=== PATIENT | female | born 1975 | race Caucasian/White ===

== ENCOUNTER 2023-01-20 12:46 | Outpatient (CLI) | payer OTHER, SELFPAY ==
--- NOTE | ~2023-01-20 | CT_ITS ---
EXAMINATION: CT abdomen pelvis w con DATE: 01/20/2023 13:14 INDICATION: Unspecified abdominal pain TECHNIQUE: Computed tomography (CT) of the abdomen and pelvis was performed with 100 CC Omnipaque 350 intravenous contrast. Automated exposure control and iterative reconstruction technique were employe d. Exam dose: 827.16 mGy-cm total exam DLP. COMPARISON: 05/18/2019 CT abdomen pelvis FINDINGS: 3 mm peripheral middle lobe pulmonary nodule, not likely of clinical significance if there are no risk factors for lung cancer. The lung bases are clear of infiltrate or consolidation. Normal heart size. No pericardial or pleural effusion. Status post cholecystectomy. No bile duct or pancreatic duct dilatation. No hepatic, pancreatic, sple beryl or adrenal space-occupying mass lesion. 3.5 mm left renal cyst. The kidneys are otherwise unremarkable. No urinary tract calculus or hydroure teronephrosis. The urinary bladder is unremarkable. Status post hysterectomy. 2.3 cm left ovarian cys t. Mild abdominal aortic atherosclerotic calcification. No abdominal aortic aneurysm. No intraperitoneal or retroperitoneal or pelvic mass lesion or adenopathy or ascites is detected. Normal appendix. No bowel obstruction, bowel wall thickening or pneumoperitoneum. Included skeletal structures are unremarkable. IMPRESSION: Status post cholecystectomy Status post hysterectomy 3.5 mm left renal cyst 2.3 cm left ovarian cyst Reviewed, dictated and finalized at [facility]. Reviewed, dictated and finalized at [facility].
[2023-01-20 13:06] LABS: Estimated Glomerular Filt Rate > 60
== END 2023-01-20 12:47 ==
PROVIDERS: PCP Physician Assistant Medical; Visit Provider Physician Assistant Medical
DX: R10.9 Unspecified abdominal pain (principal); R31.9 Hematuria, unspecified; N28.1 Cyst of kidney, acquired; N83.202 Unspecified ovarian cyst, left side; Z90.49 Acquired absence of other specified parts of digestive tract
CPT/HCPCS: 74177; Q9967

== ENCOUNTER → 2023-03-19 10:56 | Outpatient (CLI) | payer OTHER, SELFPAY ==
--- NOTE | ~2023-03-19 | US_ITS ---
EXAMINATION: US pelvic complete DATE: 03/19/2023 11:38 INDICATION: Follow-up ovarian cyst Comparison:No prior studies for comparison. TECHNIQUE: Multiple transabdominal and endovaginal sonographic images of the pelvis performed. FINDINGS: The uterus is surgically absent. The right ovary measures 2.9 x 2.1 x 3.6 cm and the left o vary measures 4 x 2 x 2.7 cm. There are small follicles in each ovary. Normal doppler signal in both ovaries. There is no free fluid in the pelvis. There are no abnormal masses seen on either side. IMPRESSION: 1. Unremarkable pelvic ultrasound post hysterectomy. Reviewed, dictated and finalized at [facility].
== END ==
PROVIDERS: PCP Physician Assistant Medical; Visit Provider Obstetrics & Gynecology Gynecology
DX: N83.202 Unspecified ovarian cyst, left side (principal)
CPT/HCPCS: 76856

== ENCOUNTER 2023-06-18 00:16 | Day surgery (SDC) | payer OTHER, SELFPAY ==
[2023-04-27 14:26] VITALS: BMI 33.8
--- NOTE | 2023-06-03 10:56 | PC.NURSE ---
Pt was rescheduled from May to 06/18/23. States no changes in health history or medications since last PAT call. Aware of new date and times. Will e-mail prep instructions per pt request. No further questions. Verbalizes understanding.
--- NOTE | 2023-06-16 12:10 | SUR.PREOP ---
Patient called regarding upcoming procedure. Reviewed preop instructions, appointment times, and procedure prep.
[2023-06-18 08:18] VITALS: BP 127/74; PULSE 60; RESP 18; TEMP 36.4; O2SAT 98; BMI 34.0
[2023-06-18] MEDS: LACTATED RINGERS 1,000 ML 150 ML IV CONT (08:38)
--- NOTE | 2023-06-18 08:49 | WPDANESEPPF ---
Anes - Initial Pre Proc Eval Procedure: Operation Date: 06/18/23 09:30 Proposed Procedures p Screening Colonoscopy - Lino Vasquez MD Date/Time: 06/18/23 08:49 Surgeon: Lino Vasquez MD Pre Op Diagnosis: neoplasm screening, screening for malignant neopla Patient Data Age: 47 Gender: F Height: 1.57 m Weight: 84.4 kg Last Vital Signs Temp 36.4 C L 06/18/23 08:18 Pulse 60 06/18/23 08:18 Resp 18 06/18/23 08:18 BP 127/74 06/18/23 08:18 Pulse Ox 98 06/18/23 08:18 O2 Del Method Room Air 06/18/23 08:18 Allergies Allergy/AdvReac Type Severity Reaction Status Date / Time iohexol Allergy Rash Verified 06/18/23 08:27 [From contrast - CT, X-RAY] diazepam [From Valium] AdvReac Irritable Verified 06/18/23 08:27 duloxetine [From Cymbalta] AdvReac Rash Verified 06/18/23 08:27 Home Medications Medication Instructions Recorded Confirmed Type lorazepam 0.5 mg tablet 0.5 mg PO BID PRN anxiety #60 tabs 03/16/23 06/18/23 Rx dextroamphetamine-amphetamine ER 20 mg PO DAILY #60 caps 04/02/23 06/18/23 Rx 10 mg 24hr capsule,extend release (Adderall XR) losartan 50 mg-hydrochlorothiazide 1 tablet PO DAILY 04/27/23 06/18/23 History 12.5 mg tablet azithromycin 250 mg tablet See Rx Instructions PO .COMPLEX #6 05/17/23 06/18/23 Rx tabs bupropion HCl 300 mg 24 hr tablet, See Rx Instructions .Route 05/17/23 06/18/23 Rx extended release .COMPLEX #90 tabs prednisone 20 mg tablet 20 mg PO DAILY #5 tabs 05/17/23 06/18/23 Rx Patient hx anesthesia problems: none Family hx anesthesia problems: none Results Review: All pre-operative results and documents have been reviewed as part of the pre-operative evaluation. [facility] Past Medical History Medical History Abnormal mammogram ADD (attention deficit disorder) Anxiety Depression Gallbladder & bile duct stone, acute cholecystitis and obstruction HTN (hypertension) Surgical History Surgical History History of cholecystectomy History of hysterectomy still has ovaries Family History Family History Mother Family history of gynecological problem Sibling Family history of gynecological problem Grandparent Carcinoma of colon Malignant neoplasm of prostate Other Family history of lupus erythematosus Social History Social History Smoking packs per day: 0.25 Smoking cigarettes per day: 5.0 Years smoked: 5 Smoking pack-years: 1.25 Smoking status: Former smoker Tobacco type: cigarettes Smoking end date: 07/05/09 Alcohol intake: current Alcohol use details: 2 drinks monthly Substance use: never Substance use type: does not use Lack of Transportation: No Lack of Food: Never True Current Housing: I Have Housing Concerned About Future Housing: No Difficulty Paying Gas/Electric Bills: No Difficulty Paying for Meds: No Currently Unemployed: No Education: High School Diploma/GED Difficulty w/ Childcare or Family Care: No Living arrangements: with family Occupation/Education: occupation Gender identity (if verbalized by the patient): Female Sexual Orientation (if Verbalized by the Patient): Straight or Heterosexual Spiritual care concerns: No Anes - Eval Final PreProcedure Day of Procedure 06/18/23 08:49 Patient weight: obese Heart: regular rate and rhythm Lungs: clear to auscultation Airway: Mallampati scale class III and special considerations poor opening Neurological: alert and oriented Last oral intake: >/= 8 hours ASA classification: III Emergent: no Anesthetic plan: proceed Anesthesia type and monitoring: general GIVS and standard monitoring Results Review: All pre-operative results and documents have been reviewed as part of
--- NOTE | 2023-06-18 09:06 | PM.HPGS ---
History of Present Illness History of Present Illness Consent: Risks, benefits, and alternatives have been discussed and questions answered. Patient agrees to proceed with procedure. Chief complaint: neoplasm screening, screening for malignant neopla Narrative: Carline Gracia is a 47 year old female here for screening colonoscopy, had one about 20 years ago when was having GI issues Review of Systems Constitutional: Constitutional: Denies headache(s) and Denies weakness Eyes: Eyes: Denies blurry vision ENT: Reports Normal hearing present, Denies headache(s) and Denies neck pain Cardiovascular: Cardiovascular: Denies chest pain and Denies dyspnea Respiratory: Respiratory: Denies dyspnea Gastrointestinal: Gastrointestinal: Reports no additional gastrointestinal complaints Genitourinary: Genitourinary: Denies dysuria Musculoskeletal: Musculoskeletal: Denies neck pain Integumentary/Breasts: Skin/Breast: Denies dry skin Neurologic: Reports Normal hearing present, Denies headache(s) and Denies weakness Psychiatric: Psychiatric: Denies anxiety Endocrine: Endocrine: Denies change in body appearance Hematologic/Lymphatic: Hematologic/Lymphatic: Denies easy bleeding Allergic/Immunologic: Allergic/Immunologic: Denies urticaria PMFSH Past Medical History Medical History (Updated 06/18/23 @ 09:07 by Lino Vasquez MD) Abnormal mammogram ADD (attention deficit disorder) Anxiety Colon cancer screening Depression Gallbladder & bile duct stone, acute cholecystitis and obstruction HTN (hypertension) Surgical History Surgical History History of cholecystectomy History of hysterectomy still has ovaries Family History Family History Mother Family history of gynecological problem Sibling Family history of gynecological problem Grandparent Carcinoma of colon Malignant neoplasm of prostate Other Family history of lupus erythematosus Social History Social History Smoking packs per day: 0.25 Smoking cigarettes per day: 5.0 Years smoked: 5 Smoking pack-years: 1.25 Smoking status: Former smoker Tobacco type: cigarettes Smoking end date: 07/05/09 Alcohol intake: current Alcohol use details: 2 drinks monthly Substance use: never Substance use type: does not use Lack of Transportation: No Lack of Food: Never True Current Housing: I Have Housing Concerned About Future Housing: No Difficulty Paying Gas/Electric Bills: No Difficulty Paying for Meds: No Currently Unemployed: No Education: High School Diploma/GED Difficulty w/ Childcare or Family Care: No Living arrangements: with family Occupation/Education: occupation Gender identity (if verbalized by the patient): Female Sexual Orientation (if Verbalized by the Patient): Straight or Heterosexual Spiritual care concerns: No Meds Home Medications and Allergies Home Medications Medication Instructions Recorded Confirmed Type lorazepam 0.5 mg tablet 0.5 mg PO BID PRN anxiety #60 tabs 03/16/23 06/18/23 Rx dextroamphetamine-amphetamine ER 20 mg PO DAILY #60 caps 04/02/23 06/18/23 Rx 10 mg 24hr capsule,extend release (Adderall XR) losartan 50 mg-hydrochlorothiazide 1 tablet PO DAILY 04/27/23 06/18/23 History 12.5 mg tablet azithromycin 250 mg tablet See Rx Instructions PO .COMPLEX #6 05/17/23 06/18/23 Rx tabs bupropion HCl 300 mg 24 hr tablet, See Rx Instructions .Route 05/17/23 06/18/23 Rx extended release .COMPLEX #90 tabs prednisone 20 mg tablet 20 mg PO DAILY #5 tabs 05/17/23 06/18/23 Rx Allergies Allergy/AdvReac Type Severity Reaction Status Date / Time iohexol Allergy Rash Verified 06/18/23 08:27 [From contrast - CT, X-RAY] diazepam [From Valium] AdvReac Irritable Verified 06/18/23 08:27
[2023-06-18 09:26] VITALS: BP 102/59; PULSE 79; RESP 18; O2SAT 99
[2023-06-18 09:36] VITALS: BP 107/78; PULSE 80; RESP 18; O2SAT 100
[2023-06-18 09:46] VITALS: BP 103/60; PULSE 65; RESP 16; O2SAT 100
== END 2023-06-18 09:49 | disposition home or self-care (01) ==
PROVIDERS: PCP Physician Assistant Medical; Visit Provider Internal Medicine Gastroenterology
PROC: 0DJD8ZZ Inspection of Lower Intestinal Tract, Via Natural or Artificial Opening Endoscopic (ICD-10-PCS; CPT 45378; principal; 2023-06-18 09:30)
DX: Z12.11 Encounter for screening for malignant neoplasm of colon (principal); K63.5 Polyp of colon; F98.8 Other specified behavioral and emotional disorders with onset usually occurring in childhood and adolescence; I10 Essential (primary) hypertension; F41.9 Anxiety disorder, unspecified; F32.A Depression, unspecified; Z87.891 Personal history of nicotine dependence; E66.9 Obesity, unspecified; Z68.34 Body mass index [BMI] 34.0-34.9, adult
CPT/HCPCS: 45385; 88305; J2001; J2704; J7120